=== PATIENT | male | born 1965 | race African-American/Black ===

== ENCOUNTER 2016-09-04 13:37 | Emergency (ER) | payer OTHER ==
[~2016-09-04] VITALS: Ht 182.9 cm; Wt 97.0 kg
[~2016-09-04 13:37] MED LIST: ATOR40TA16 PO; CHLO25TA2 PO; TAMS5CAP PO; TEGR200T PO; VERA1TAB17 PO
[2016-09-04 13:40] VITALS: BP 142/78; PULSE 99; RESP 20; TEMP 98.5; O2SAT 97
[2016-09-04] MEDS ORDERED: CYCL1TAB29 PO (14:53)
[2016-09-04] MEDS ORDERED: IBUP-232 PO (14:54)
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
[2016-09-24] MEDS ORDERED: ATOR40TA16 PO (14:17)
[2017-01-15] MEDS ORDERED: TEGR200T PO (13:58)
[2017-01-22] MEDS ORDERED: VERA1TAB17 PO (13:48)
== END 2016-09-04 15:15 | disposition home or self-care (01) ==
LOC: NEPB 13:37
DX: M62.838 Other muscle spasm (principal); M54.5 Low back pain; M54.2 Cervicalgia; W51.XXXA Accidental striking against or bumped into by another person, initial encounter; Y93.9 Activity, unspecified; Y92.9 Unspecified place or not applicable
CPT/HCPCS: 99283

== ENCOUNTER → 2017-03-31 | Outpatient (CLI) | payer OTHER ==
[~2017-03-31] MED LIST changes: +LORA-474 PO; +PRED20 PO; -TAMS5CAP PO
[2017-03-31 12:27] LABS: AUTOMATED NEUTROPHIL # 3.4 TH/MM3 (1.8-7.7); BASOPHIL # 0.1 TH/MM3 (0-0.2); BASOPHIL % 0.9 % (0.0-2.0); EOSINOPHIL # 0.1 TH/MM3 (0-0.4); EOSINOPHIL % 0.9 % (0.0-4.0); HEMATOCRIT 40.9 % (39.0-51.0); HEMO FLAGS DIFF FINAL; LYMPH % 30.6 % (9.0-44.0); LYMPHOCYTE # 1.7 TH/MM3 (1.0-4.8); MEAN CELL VOLUME 92.9 FL (80.0-100.0); MEAN CORPUSCULAR HEMOGLOBIN 30.4 PG (27.0-34.0); MEAN CORPUSCULAR HGB CONC 32.8 % (32.0-36.0); MONO % 8.4 % (0.0-8.0); NEUT % 59.2 % (16.0-70.0); PLATELET COUNT 256 TH/MM3 (150-450); RED CELL DISTRIBUTION WIDTH 13.2 % (11.6-17.2); WHITE BLOOD COUNT 5.7 TH/MM3 (4.0-11.0)
[2017-03-31 12:36] LABS: ANION GAP 7 MEQ/L (5-15); AST (GOT) 15 U/L (15-37); BICARBONATE 31.9 MEQ/L (21.0-32.0); BLOOD UREA NITROGEN 14 MG/DL (7-18); CHLORIDE 97 MEQ/L (98-107); GLOMERULAR FILTRATION RATE 72 ML/MIN (>89); GLUCOSE,FASTING 104 MG/DL (74-99); POTASSIUM 3.9 MEQ/L (3.5-5.1); SODIUM (NA) 136 MEQ/L (136-145)
[2017-03-31 12:38] LABS: ALT (GPT) 28 U/L (12-78)
[2017-03-31 12:39] LABS: ALKALINE PHOSPHATASE 130 U/L (45-117); TOTAL BILIRUBIN ADULT 0.2 MG/DL (0.2-1.0)
== END ==
LOC: CLAB 11:50
PROVIDERS: ATTEND Specialist
DX: I20.9 Angina pectoris, unspecified (principal); R07.9 Chest pain, unspecified; G40.209 Localization-related (focal) (partial) symptomatic epilepsy and epileptic syndromes with complex partial seizures, not intractable, without status epilepticus; G93.3 Postviral and related fatigue syndromes; M31.6 Other giant cell arteritis; Z51.81 Encounter for therapeutic drug level monitoring; Z68.30 Body mass index [BMI] 30.0-30.9, adult
CPT/HCPCS: 36415; 80053; 80156; 85025